=== PATIENT | male | born 1950 ===

== ENCOUNTER 2018-07-20 13:58 | Outpatient (RCR) | payer MEDICARE, BC ==
[~2018-07-20 13:58] MED LIST: AMLO-119 PO; ASPI-1471 PO; CIPR-345 PO; FAMO-67 PO; HYDR-654 PO; IBUP600T22 PO; LEU30I IM ONLY; LEVO-85 PO; METO50TA19 PO; MULT1CAP59 PO; PHEN200T32 PO; PITA2TAB PO; SITA1TAB17 PO; TAMS0.4C25 PO
--- NOTE | 2018-07-22 12:12 | ONCOLOGY FOLLOW UP NOTE ---
EVENT DATE: July 20, 2018 DIAGNOSIS Adenocarcinoma of the prostate. REASON FOR VISIT Ongoing oncology surveillance and review of labs. HISTORY OF PRESENT ILLNESS Patient was seen for followup appointment today. He is a gentleman who underwent prostate brachytherapy with Dr. Joseph in the past on March 23, 2017. He initially received six months of Lupron as well to maximize therapeutic tumor control. Patient presented with a large gland measuring 7.3 cm and had a high volume tumor in the left lateral base and left apex. Pre-treatment PSA is 6.28 ng/mL. Most recent PSA was obtained through labs in [place] and is listed as 1.47 ng/mL. That date was July 12, 2018. Patient denies any persistent hot flashes. He is sexually active at this time and does not utilize any medications. He has noticed a decrease in seminal fluid since the treatment, which is expected. Patient denies any new or persistent bone pain. Patient denies any voiding dysuria. Reasonably good stream on one Flomax tablet every evening. MEDICATIONS 1. Aspirin 81 mg a day. 2. Amlodipine/benazepril 10 to 20 mg every day. 3. Janumet mg a day. 4. Metoprolol 50 mg every 24 hours. 5. Livalo 2 mg a day 6. Tamsulosin 0.4 mg every day. ALLERGIES None. PAST MEDICAL HISTORY 1. Adenocarcinoma of the prostate Noe 6, high volume tumor involving the left lobe, 7.3 cm enlarged gland. Separate core biopsy 5% as well in the left lobe. Main biopsy was 60% in the left lateral core. Pre-treatment PSA was 6.28. Diagnosed January 15, 2017. 2. Asthma. 3. Type 2 diabetes. 4. GE reflux. 5. History of BPH. 6. History of hypercholesterolemia. 7. Hypertension. PAST SURGICAL HISTORY 1. Umbilical hernia repair. 2. Prostate biopsy, February 14, 2017. 3. Tonsillectomy. 4. Prostate brachytherapy, March 23, 2017. 5. Radiation therapy/Palladium-103 seed implant, March 23, 2017. Target volume 11,500 cGy. SOCIAL HISTORY Nonsmoker. Rare alcohol use. 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 COMPREHENSIVE REVIEW OF SYSTEMS Entirely negative. PHYSICAL EXAMINATION GENERAL: Pleasant 67-year-old gentleman of medium to tall build. VITAL SIGNS: BP 149/82, respirations 16, O2 sat 98%. LUNGS: Clear bilaterally. No lymphadenopathy. CARDIOVASCULAR: Heart sounds regular. ABDOMEN: Soft. No gross organomegaly. RECTAL: Prostate is flat with no nodularity or tenderness. IMPRESSION Overall, the patient is doing well at this juncture. I would expect minor recovery of the PSA over time and generally the number will stabilize in the 0 to 2.5 range. I did tell the patient that due to the large size of the gland, there is a small potential, about 10%, that he would need secondary therapy down the road but we will decide that if and when we see any increase in the numbers. He is sexually active at this time and is pleased with the exam and discussion today. The patient was instructed to have PSA interval repeated at every six month intervals. He will follow up with Dr. Joseph in six months and see me again in a year. Patient will continue to follow with Dr. Vasquez with general medical care. All questions were answered to his satisfaction over a 40 minute appointment today. ELLIE
== END 2018-09-20 08:31 | disposition home or self-care (01) ==
LOC: RAON 13:58
PROVIDERS: ATTEND Radiology Radiation Oncology
DX: C61 Malignant neoplasm of prostate (principal); E11.9 Type 2 diabetes mellitus without complications; K21.9 Gastro-esophageal reflux disease without esophagitis; E78.00 Pure hypercholesterolemia, unspecified; Z79.82 Long term (current) use of aspirin; Z79.899 Other long term (current) drug therapy; Z92.3 Personal history of irradiation
CPT/HCPCS: 99212